=== PATIENT | female | born 1960 | race Caucasian/White ===

== ENCOUNTER → 2024-12-30 12:00 | Outpatient (REF) | payer BC, SELFPAY ==
[2024-12-30 13:20] LABS: ALT (SGPT) 24 U/L (0-35); AST (SGOT) 27 U/L (14-36); Albumin 4.2 g/dl (3.5-5.0); Alkaline Phosphatase 62 U/L (38-126); Blood Urea Nitrogen 17 mg/dl (7-17); Calcium 10.3 mg/dl (8.4-10.2); Carbon Dioxide 24 mmol/L (22-30); Chloride 111 mmol/L (98-107); Glucose 87 mg/dl (70-99); HDL Cholesterol 80 mg/dl; LDL Cholesterol, Calculated 83 mg/dl; Potassium 4.9 mmol/L (3.5-5.1); Sodium 142 mmol/L (135-145); Total Bilirubin 0.6 mg/dl (0.2-1.3); Total Cholesterol 174 mg/dl (50-199); Total Protein 6.9 g/dl (6.3-8.2); Triglyceride 55 mg/dl (10-149); Very Low Density Lipoprotein 11 mg/dl (0-30); eGFR > 60.00
[2024-12-31 09:17] LABS: Glycohemoglobin (HgbA1c) 5.4 % (4.0-5.6)
== END ==
LOC: REG 12:00
PROVIDERS: ATTENDING PHYSICIAN Family Medicine
DX: I10 Essential (primary) hypertension (principal); R73.03 Prediabetes; Z13.220 Encounter for screening for lipoid disorders
CPT/HCPCS: 36415; 80053; 80061; 83036

== ENCOUNTER 2025-03-28 11:02 | Emergency (ER) | payer BC, SELFPAY ==
[2025-03-28] VITALS (32 sets, daily range): BP systolic 122–174; BP diastolic 79–136
--- NOTE | 2025-03-28 11:39 | ED.GENMED ---
History of Present Illness
General
Chief Complaint: Musculo-Skeletal Complaint
Time Seen by Provider: 03/28/25 11:06
History of Present Illness
History of Present Illness:
64-year-old female with prior history of bilateral hip replacement about 20 years ago presenting to the emergency department for left hip pain. Patient reports prior to arrival she was lying on her stomach on her bed and reached into her bed to
grab something and felt her left hip pop out. Notes that she had this issue about 4 months ago. She has not followed up with orthopedics in several years. She presently has no orthopedist. She denies any direct fall or trauma. Denies numbness
or tingling to her leg. Denies additional acute medical complaints
Past History
Past History
ED Past Medical History: Other (heomchromatosis)
Social History
Tobacco: Non-smoker
Alcohol: None
Drug: None
Personal: Single
Employment: Employed
Phy Exam
Physical Exam
Physical Exam:
General: Well-appearing, no clinical signs of dehydration, nontoxic and in no acute distress
HEENT: protecting airway
Neck: appears supple
CV: Normal heart rate
Resp: No accessory muscle use, no increased work of breathing
Abd: No distention
Extremities: No deformities, no swelling. Hips held in flexed position. No significant deformity. Distal sensation and pulses intact. No swelling
Neuro: alert, no focal neurologic deficit
: deferred
Rectal: deferred
Psych: Normal affect
Skin: Intact
Course
Orders/Labs/Results
Orders:
Orders
03/28/25 11:29
Hip, Left 2-3 Views [CR Hip - LT w/wo Pel 2-3 Vw*] Urgent
Comment:
Reason For Exam: suspected dislocation
Include a pelvis x-ray?: Yes
03/28/25 13:47
Propofol [Diprivan] 20 ml .ROUTE .STK-MED
03/28/25 13:52
Ketamine [Ketalar] 55 mg IV NOW STA
03/28/25 14:14
Midazolam HCl [Versed] 2 mg .ROUTE .STK-MED ONE
03/28/25 14:15
Hip, Left 1 View [CR Hip - LT without Pel 1 Vw] Urgent
Comment:
Reason For Exam: post reduction
03/28/25 14:18
Midazolam HCl [Versed] 2 mg .ROUTE .STK-MED ONE
03/28/25 14:28
Ketamine [Ketalar] 45 mg IV NOW STA
Midazolam HCl [Versed] 4 mg IV NOW STA
03/28/25 20:48
Folding walker [Treatment- Walker] ONCE
Vital Signs
Initial and Last Documented VS:
Initial Vital Signs
BP
146/84
03/28/25 11:11
Last Documented Vital Signs
Temp Pulse Resp BP Pulse Ox
98.4 F 73 22 158/89 95
03/28/25 21:20 03/28/25 20:37 03/28/25 20:37 03/28/25 19:00 03/28/25 20:30
Procedures
Moderate Sedation
ASA Risk Score: Class II
Chart and allergies reviewed: Yes
Consent for anesthesia obtained: Yes
Time out completed (validating right patient & procedure): Yes
Moderate Sedation Start Time(when first medication is given): 14:03
History of difficult intubation: No
Airway free of obstruction: Yes
Patient has a gag reflex: Yes
Patient is able to open mouth: Yes
Patient has no dentures: Yes
Patient has no loose teeth: Yes
Medication administered by Provider during Moderate Sedation: Other (ketamine)
Total dose administered: 100
Time drug administered: 14:03
Moderate Sedation Procedure End Time: 14:20
Joint/Fracture Reduction
Left Hip:
Indication for procedure:: dislocation
Procedure completed by: Debbie Craven DO
Consent form signed: Yes
Joint reduced: with anesthesia sedation
Anesthesia/sedation: Other (ketamine)
Injury was: closed
Post reduction exam: stable
Capillary Refill: normal
Normal distal neurovascular exam?: Yes
MDM/Problems Addressed
MDM/Problems Addressed:
64-year-old female with prior history of bilateral hip replacements about 20 years ago presenting for concern of hip dislocation. Vital signs on arrival are normal.
On exam patient is resting comfortably, no acute distress. Overall reassuring examination of the left hip. No obvious swelling or deformity. Hip is held in flexion, limited range of motion. No neurovascular compromise with intact sensation and
pulses. No infectious findings. Will obtain x-ray imaging for further assessment
14:20 - X-ray confirms a hip dislocation, anterior. Subsequent reduction. Please see procedural sedation. Patient will monitoring until clinically stable off sedation and appropriate for discharge. Will require outpatient orthopedic follow-up
*Pulse Oximetry
SaO2: 97
Oxygen Mode of Delivery: Room air
Patient hypoxic: no
*Critical Care Note
Total Time (30-74mins, 75-104mins- exclusive of procedures): Not Applicable
ED Attending Note
-
Portions of this chart may have been created with voice recognition software.� Occasional wrong word or��sound alike� substitutions may have occurred due to the inherent limitations of voice recognition software.
Discharge Plan
Departure
Patient Disposition: Home (Routine Discharge)
Date of Disposition: 03/28/25
Time of Disposition: 17:45
Patient with high blood pressure during this ER visit?: No
Condition: Good
Discharge Problem:
Hip dislocation, left
Instructions: Hip Dislocation (DC), MODERATE SEDATION ADULT
Prescriptions:
No Action
dextroamphetamine-amphetamine [Adderall] 20 MG tablet
20 mg PO DAILY
zolpidem [Ambien] 10 MG tablet
1 tab PO DAILY
Stool Softener
3 tab PO DAILY
Referrals:
Toni Meléndez MD [Active, Orthopedics]
Diana Mendoza MD [Family Provider, Family Practice]
Activity Restrictions/Additional Instructions:
You were seen in the emergency department for a left hip dislocation.
Your hip was placed back into position. You will need to follow-up with orthopedic doctor.
Please follow-up closely with your primary care physician.
Return to the emergency department for any worsening of your symptoms, or any development of chest pain, difficulty breathing, abdominal pain with persistent vomiting and inability to tolerate food or liquid by mouth (concern for dehydration),
weakness, headache or confusion, fever greater than 100.4, or any additional symptoms that are concerning to you.
Thank you for choosing [facility].
Interventions
Interventions:
*Risk Screen - Suicide Last Done: 03/28/25 11:13
*General Assessment Last Done: 03/28/25 11:13
*Neglect/Abuse Screening Last Done: 03/28/25 11:13
*ED- Fall Risk Assessment Last Done: 03/28/25 11:13
*ED COVID-19 Vaccine History Last Done: 03/28/25 11:13
*Nursing Disposition Last Done: 03/28/25 21:20
ED-Musculoskeletal Assessment Last Done: 03/28/25 11:31
Discharge Date and Time
Discharge Date/Time: 03/28/25 21:20
Print Language: KOREAN
[2025-03-28] MEDS: KETALAR 55 MG IV (14:00)
[2025-03-28] MEDS: KETALAR 45 MG IV (14:10)
[2025-03-28] MEDS: VERSED 4 MG IV (15:05)
== END 2025-03-28 21:20 | disposition home or self-care (01) ==
LOC: EMR 11:02
PROVIDERS: EMERGENCY PHYSICIAN Student in an Organized Health Care Education/Training Program; FAMILY PHYSICIAN Family Medicine
DX: T84.021A Dislocation of internal left hip prosthesis, initial encounter (principal); Y79.2 Prosthetic and other implants, materials and accessory orthopedic devices associated with adverse incidents; Z96.643 Presence of artificial hip joint, bilateral
CPT/HCPCS: 99285; 27250; 96374; 73501; 73502